=== PATIENT | female | born 1995 | race Caucasian/White ===

== ENCOUNTER 2016-08-18 19:38 | Emergency (ER) | payer SELFPAY ==
[~2016-08-18] VITALS: Ht 167.6 cm; Wt 62.0 kg
[~2016-08-18 19:38] MED LIST: CEPH500C3 PO
[2016-08-18 19:53] VITALS: BP 124/84; PULSE 64; RESP 16; TEMP 98.3; O2SAT 99
[2016-08-18 20:44] LABS: BLOOD, URINE NEG (NEG); GLUCOSE,URINE NEG (NEG); KETONE, URINE NEG (NEG); NITRITE,URINE NEG (NEG)
[2016-08-18 20:56] LABS: RBC, URINE 0-2 /hpf (0-3); SQUAMOUS EPITHELIAL CELL URINE 0-5 /hpf (0-5); URINE COLOR STRAW (YELLW/STRAW); WBC, URINE 0-2 /hpf (0-5)
[2016-08-18 20:57] LABS: COMMENT (UR) CULT NOT INDICATED; CULTURE IF INDICATED CULT NOT INDICATED
[2016-08-18 23:34] VITALS: BP 124/84; PULSE 64; RESP 16; TEMP 98.3; O2SAT 99
[2016-08-19 00:30] LABS: AUTOMATED NEUTROPHIL # 8.1 TH/MM3 (1.8-7.7); BASOPHIL # 0.1 TH/MM3 (0-0.2); BASOPHIL % 1.1 % (0.0-2.0); EOSINOPHIL # 0.1 TH/MM3 (0-0.4); EOSINOPHIL % 0.6 % (0.0-4.0); HEMATOCRIT 40.5 % (35.0-46.0); HEMO FLAGS DIFF FINAL; LYMPHOCYTE # 2.1 TH/MM3 (1.0-4.8); MEAN CELL VOLUME 89.4 FL (80.0-100.0); MEAN CORPUSCULAR HEMOGLOBIN 31.2 PG (27.0-34.0); MEAN CORPUSCULAR HGB CONC 34.9 % (32.0-36.0); NEUT % 71.3 % (16.0-70.0); PLATELET COUNT 223 TH/MM3 (150-450); RED BLOOD COUNT 4.53 MIL/MM3 (4.00-5.30); WHITE BLOOD COUNT 11.3 TH/MM3 (4.0-11.0)
--- NOTE | 2016-08-19 00:39 | PD ---
HPI Chief Complaint: Complaint Time Seen by Provider: 00:34 Travel History International Travel<30 days: No Contact w/Intl Traveler<30days: No Traveled to known affect area: No History of Present Illness HPI 21-year-old female presents to the emergency department by private transportation for complaint of bilateral flank pain sudden onset since 5 PM. Initially pain was 8/10 in intensity presently pain is 2/10 in intensity. Patient denies any injury. 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 Patient states that she was practicing her normal training routine and did not escalate her routine. No fever no chills no nausea no vomiting no abdominal pain no frequency urgency or hematuria but has noted some discomfort with urination this evening. Patient denies history of similar symptoms. No report of lower extremity numbness tingling or weakness saddle anesthesia or bladder or bowel dysfunction. Patient denies any injury or fall. Patient has family history of kidney stones. Patient has no chronic medical conditions and denies any previous surgeries. Last menstrual period was 07/12/16 and normal for her and denies . Patient is unable to identify exacerbating or alleviating factors however does note that with discontinuing her exercise workout that her symptoms seemed to dissipate. Patient reports she has been well hydrated. PFSH Past Medical History Narrative Medical Negative past cervical history negative surgical history no tobacco use nursing notes reviewed Medical History: Denies Significant Hx Hx Anticoagulant Therapy: No Cardiovascular Problems: No Chemotherapy: No Cerebrovascular Accident: No Diabetes: No Diminished Hearing: No Respiratory: No Immunizations Current: Yes Tetanus Vaccination: Unknown Influenza Vaccination: No ?: Not LMP: 08/09/16 : 0 Past Surgical History Surgical History: No Previous Surgery Hysterectomy: No Social History Alcohol Use: No Tobacco Use: No Substance Use: No Allergies-Medications (Allergen,Severity, Reaction): Coded Allergies: No Known Allergies (Unverified , 08/18/16) Reported Meds & Prescriptions Reported Meds & Active Scripts Active Robaxin (Methocarbamol) 750 Mg Tab 750 Mg PO Q6HR Review of Systems Except as stated in HPI: all other systems reviewed are Neg General / Constitutional: No: Fever, Chills HENT: No: Congestion Cardiovascular: No: Chest Pain or Discomfort Respiratory: No: Shortness of Breath Gastrointestinal: No: Nausea, Vomiting, Diarrhea, Abdominal Pain Genitourinary: Positive: Dysuria, Flank Pain, No: Urgency, Frequency, Pelvic Pain, Discharge, Vaginal Bleeding Musculoskeletal: No: Myalgias Neurologic: No: Weakness, Dizziness, Syncope, Paresthesia Psychiatric: No: Anxiety Endocrine: No: Heat Intolerance Hematologic/Lymphatic: No: Easy Bruising Physical Exam Narrative GENERAL: Well-developed well-nourished female in no acute distress no respiratory distress SKIN: Warm and dry. HEAD: Normocephalic. EYES: No scleral icterus. No injection or drainage. NECK: Supple, trachea midline. No JVD or lymphadenopathy. CARDIOVASCULAR: Regular rate and rhythm without murmurs, gallops, or rubs. RESPIRATORY: Breath sounds equal bilaterally. No accessory muscle use. GASTROINTESTINAL: Abdomen soft, non-tender, nondistended. MUSCULOSKELETAL: No cyanosis, or edema. BACK: Nontender without obvious deformity. No CVA tenderness. Data Data Last Documented VS Vital Signs Date Time Temp Pulse Resp B/P Pulse Ox O2 Delivery O2 Flow Rate FiO2 08/19/16 03:23 74 18 98 08/19/16 03:17 121/76 Room Air 08/18/16 23:34 98.3 Orders Urinalysis - C+S If Indicated (08/18/16 20:16) Complete Blood Count With Diff (08/18/16 23:48) Comprehensive Metabolic Panel (08/18/16 23:48) Ed Urine Pregnancytest Poc (08/18/16 23:48) Iv Access Insert/Monitor (08/18/16 23:48) Oxygen Administration (08/18/16 23:48) Oximetry (08/18/16 23:48) Lipase (08/18/16 23:48) Ct Abd/Pel W/O Iv Contrast (08/19/16 ) Labs Laboratory Tests Test 08/18/16 08/18/16 20:30 23:45 Urine Color STRAW Urine Turbidity CLEAR Urine pH 6.0 Urine Specific [place] 1.005 Urine Protein NEG mg/dL Urine Glucose (UA) NEG mg/dL Urine Ketones NEG mg/dL Urine Occult Blood NEG Urine Nitrite NEG Urine Bilirubin NEG Urine Leukocyte Esterase NEG Urine RBC 0-2 /hpf Urine WBC 0-2 /hpf Urine Squamous Epithelial 0-5 /hpf Cells Urine Bacteria NONE /hpf Microscopic Urinalysis Comment CULT NOT INDICATED White Blood Count 11.3 TH/MM3 Red Blood Count 4.53 MIL/MM3 Hemoglobin 14.1 GM/DL Hematocrit 40.5 % Mean Corpuscular Volume 89.4 FL Mean Corpuscular Hemoglobin 31.2 PG Mean Corpuscular Hemoglobin 34.9 % Concent Red Cell Distribution Width 12.0 % Platelet Count 223 TH/MM3 Mean Platelet Volume 8.6 FL Neutrophils (%) (Auto) 71.3 % Lymphocytes (%) (Auto) 19.0 % Monocytes (%) (Auto) 8.0 % Eosinophils (%) (Auto) 0.6 % Basophils (%) (Auto) 1.1 % Neutrophils # (Auto) 8.1 TH/MM3 Lymphocytes # (Auto) 2.1 TH/MM3 Monocytes # (Auto) 0.9 TH/MM3 Eosinophils # (Auto) 0.1 TH/MM3 Basophils # (Auto) 0.1 TH/MM3 CBC Comment DIFF FINAL Differential Comment Sodium Level 141 MEQ/L Potassium Level 3.8 MEQ/L Chloride Level 106 MEQ/L Carbon Dioxide Level 28.1 MEQ/L Anion Gap 7 MEQ/L Blood Urea Nitrogen 23 MG/DL Creatinine 1.00 MG/DL Estimat Glomerular Filtration 70 ML/MIN Rate Random Glucose 93 MG/DL Calcium Level 9.1 MG/DL Total Bilirubin 0.5 MG/DL Aspartate Amino Transf 11 U/L (AST/SGOT) Alanine Aminotransferase 30 U/L (ALT/SGPT) Alkaline Phosphatase 61 U/L Total Protein 8.0 GM/DL Albumin 3.9 GM/DL Lipase 212 U/L [facility] Medical Decision Making Medical Screen Exam Complete: Yes Emergency Medical Condition: Yes Medical Record Reviewed: Yes Differential Diagnosis Flank pain, renal colic, UTI, pyelonephritis, musculoskeletal pain, ectopic Narrative Course CBC, metabolic panel, and urinalysis revealed no acute abnormality [id number] hCG ordered along with CT kidney stone protocol At 3:05 AM pain is 2/10 in intensity patient declines ibuprofen or Toradol; patient stable for outpatient management lab values and imaging studies discussed in detail with patient with family at bedside. Diagnosis Primary Impression: Back pain Referrals: Primary Care Physician call for appointment Patient Instructions: General Instructions Departure Forms: Tests/Procedures, Work Release Special Instructions: no work x 1 day Additional Instructions: Apply ice pack call compresses intimately for first 12-24 hours then moist heat May use ibuprofen 600 mg as often as every 6 hours as needed for pain associated with inflammation May use prescription muscle relaxant as prescribed as needed for muscle spasm Return to the emergency department for any concerns or change in condition Discontinue/hold training 24 hours No work times one day Follow-up with primary care provider Med/Other Pt SpecificInfo: Prescription(s) given Scripts Methocarbamol (Robaxin)750 Mg [id number] Mg PO Q6HR #12 TAB Ref 0 Prov:Celestina Tinsley MD 08/19/16 Disposition: 01 DISCHARGE HOME Condition: Stable Celestina Tinsley MD Aug 19, 2016 00:39
[2016-08-19 00:40] LABS: CHLORIDE 106 MEQ/L (98-107); POTASSIUM 3.8 MEQ/L (3.5-5.1); SODIUM (NA) 141 MEQ/L (136-145)
[2016-08-19 00:44] LABS: ANION GAP 7 MEQ/L (5-15); BICARBONATE 28.1 MEQ/L (21.0-32.0); BLOOD UREA NITROGEN 23 MG/DL (7-18)
[2016-08-19 00:47] LABS: ALT (GPT) 30 U/L (10-53); AST (GOT) 11 U/L (15-37); GLOMERULAR FILTRATION RATE 70 ML/MIN (>89)
[2016-08-19 00:48] LABS: TOTAL BILIRUBIN ADULT 0.5 MG/DL (0.2-1.0)
[2016-08-19 00:50] LABS: ALKALINE PHOSPHATASE 61 U/L (45-117)
[2016-08-19 00:52] VITALS: BP 122/78; PULSE 72; RESP 18; O2SAT 98
--- NOTE | 2016-08-19 02:23 | RADHPO ---
EXAM DATE/TIME: 08/19/2016 01:36 [facility] COMPARISON: No previous studies available for comparison. INDICATIONS : Bilateral flank pain. Burning with urination. ORAL CONTRAST: No oral contrast ingested. RADIATION DOSE: 7.64 CTDIvol (mGy) MEDICAL HISTORY : None SURGICAL HISTORY : None. ENCOUNTER: Initial ACUITY: 1 day PAIN SCALE: 2/10 LOCATION: Bilateral flank TECHNIQUE: Volumetric scanning of the abdomen and pelvis was performed. Using automated exposure control and ad justment of the mA and/or kV according to patient size, radiation dose was kept as low as reasonably achievable to obtain optimal diagnostic quality images. FINDINGS: LOWER LUNGS: The visualized lower lungs are clear. LIVER: Homogeneous density without lesion. There is no dilation of the biliary tree. No calcified gallston es. SPLEEN: Normal size without lesion. PANCREAS: Within normal limits. KIDNEYS: Normal in size and shape. There is no mass, stone, or hydronephrosis. ADRENAL GLANDS: Within normal limits. VASCULAR: There is no aortic aneurysm. BOWEL/MESENTERY: No evidence of bowel dilatation. No free air. Trace free fluid in the pelvis. Appendix within normal limits. ABDOMINAL WALL: Within normal limits. RETROPERITONEUM: There is no lymphadenopathy. BLADDER: No wall thickening or mass. REPRODUCTIVE: Within normal limits. INGUINAL: There is no lymphadenopathy or hernia. MUSCULOSKELETAL: Within normal limits for patient age. CONCLUSION: Trace free fluid in the pelvis. No other acute findings in the abdomen or pelvis. Tejas Hinkle MD on August 19, 2016 at 2:17 Board Certified Radiologist. This report was verified electronically.
[2016-08-19] MEDS ORDERED: ROBA750T PO (03:09)
[2016-08-19 03:17] VITALS: BP 121/76; PULSE 74; RESP 18; O2SAT 98
== END 2016-08-19 03:25 | disposition home or self-care (01) ==
LOC: PHED 19:38
DX: M54.9 Dorsalgia, unspecified (principal); R30.0 Dysuria
CPT/HCPCS: 74176; 80053; 81001; 83690; 84703; 85025

== ENCOUNTER 2017-05-30 14:03 | Emergency (ER) | payer OTHER ==
[~2017-05-30] VITALS: Ht 167.6 cm; Wt 60.0 kg
[~2017-05-30 14:03] MED LIST changes: -CEPH500C3 PO; +ROBA750T PO
[2017-05-30 14:07] VITALS: BP 113/70; PULSE 61; RESP 16; TEMP 98; O2SAT 100
[2017-05-30] MEDS ORDERED: TRAM50 PO (14:42)
[2017-05-30] MEDS ORDERED: CYCL10TA PO (14:42)
--- NOTE | 2017-05-30 14:42 | PD ---
HPI . 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 She was working out today and kicked with her left leg. She had the immediate onset of pain in the left popliteal fossa. She subsequently presented to us for evaluation. The injury occurred just prior to presentation. Her pain is exacerbated by stepping on her left foot. It is also exacerbated by dorsiflexing the foot. She is not having any pain with movement of the knee. She states that her pain is a 4/10 when she is still goes to a 9/10 when she tries to stand. PFSH Past Medical History Medical History: Denies Significant Hx ?: Not LMP: 04/30/2017 Past Surgical History Surgical History: No Previous Surgery Social History Alcohol Use: No Tobacco Use: No Substance Use: No Allergies-Medications (Allergen,Severity, Reaction): Coded Allergies: No Known Allergies (Unverified , 05/30/17) Reported Meds & Prescriptions Reported Meds & Active Scripts Active Flexeril (Cyclobenzaprine HCl) 10 Mg Tab 10 Mg PO TID Ultram (Tramadol HCl) 50 Mg Tab 50 Mg PO Q4H PRN Review of Systems Except as stated in HPI: all other systems reviewed are Neg Physical Exam Narrative GENERAL: Awake and alert and in no acute distress. SKIN: Warm and dry. HEAD: Normocephalic/atraumatic. Atraumatic. EYES: Pupils are equal. Extraocular movements are intact. NECK: Normal range of motion. CARDIOVASCULAR: Regular rate and rhythm. RESPIRATORY: Nonlabored respirations. MUSCULOSKELETAL: Left knee is tender in the popliteal fossa. No tenderness of the hamstring tendons. No tenderness of the Achilles tendon. She is able to dorsi and plantar flex her foot although dorsiflexion does cause pain in the popliteal fossa. There is no significant swelling or bruising. NEUROLOGICAL: Nonfocal. PSYCHIATRIC: Appropriate mood and affect. Data Data Last Documented VS Vital Signs Date Time Temp Pulse Resp B/P (MAP) Pulse Ox O2 Delivery O2 Flow Rate FiO2 05/30/17 14:07 98.0 61 16 113/70 (84) 100 Orders Orders Knee, Complete (4vws) (05/30/17 14:20) Tramadol (Ultram) (05/30/17 14:45) [facility] Medical Decision Making Medical Screen Exam Complete: Yes Emergency Medical Condition: Yes Differential Diagnosis Differential diagnosis of extremity trauma includes but is not limited to fracture, sprain or strain, dislocation, contusion Narrative Course This patient presents with a left knee injury which was caused when she kicked her left leg and hyperextended the left knee. She has pain at the origin of the gastrocnemius muscle. I suspect gastrocnemius muscle strain. X-rays pending. Knee x-ray is negative per the radiologist interpretation. I have independently viewed the x-ray. Diagnosis Primary Impression: Strain of gastrocnemius muscle of left lower extremity Qualified Codes: S86.112A - Strain of other muscle(s) and tendon(s) of posterior muscle group at lower leg level, left leg, initial encounter Patient Instructions: General Instructions, Muscle Strain (DC) Med/Other Pt SpecificInfo: Prescription(s) given Scripts Cyclobenzaprine (Flexeril) 10 Mg Tab 10 MG PO TID for Muscle Spasm, #30 TAB 0 Refills Prov: Lianet Anderson MD 05/30/17 Tramadol (Ultram) 50 Mg Tab 50 MG PO Q4H Y for PAIN, #12 TAB 0 Refills Prov: Lianet Anderson MD 05/30/17 Disposition: 01 DISCHARGE HOME Condition: Stable Lianet Anderson MD May 30, 2017 14:42
[2017-05-30] MEDS ORDERED: traMADol HCL 50 MG TAB PO ONE (14:45)
--- NOTE | 2017-05-30 16:20 | RADRPT ---
EXAM DATE/TIME: 05/30/2017 15:29 [facility] COMPARISON: No previous studies available for comparison. INDICATIONS : Pain post fall. MEDICAL HISTORY : None. SURGICAL HISTORY : None. ENCOUNTER: Initial ACUITY: 1 day PAIN SCORE: 10/10 LOCATION: Left Knee. FINDINGS: 4 views left knee. Cannot evaluate for effusion on this study. Bone alignment within normal limits. No evidence of fracture. No evidence of joint narrowing. CONCLUSION: No evidence of fracture. Tejas Hinkle MD on May 30, 2017 at 16:18 Board Certified Radiologist. This report was verified electronically.
== END 2017-05-30 17:14 | disposition home or self-care (01) ==
LOC: MERGE 14:03 → PHEFT 14:03
DX: S86.112A Strain of other muscle(s) and tendon(s) of posterior muscle group at lower leg level, left leg, initial encounter (principal); Y93.72 Activity, wrestling; Z79.899 Other long term (current) drug therapy
CPT/HCPCS: 73564; 99284; E0113